=== PATIENT | female | born 1970 | race African-American/Black ===

== ENCOUNTER 2017-08-28 09:21 | Outpatient (CLI) | payer OTHER | END 2017-08-28 09:22 | disposition home or self-care (01) | LOC: BICRAD 09:21 | PROVIDERS: ATTEND Internal Medicine | DX: Z02.71 Encounter for disability determination (principal) ==

== ENCOUNTER 2020-03-17 09:26 | Outpatient (CLI) | payer MEDICARE ==
--- NOTE | 2020-03-17 10:04 | MMO ---
Bilateral MAMMO Bilat Diag [facility]. CLINICAL HISTORY: Patient is 49 years old and is seen for diagnostic exam. The patient has no family history of breast cancer. The patient has no personal history of cancer. VIEWS: The views performed were: bilateral craniocaudal with tomosynthesis; bilateral mediolateral oblique with tomosynthesis; and bilateral mediolateral with tomosynthesis. FILMS COMPARED: The present examination has been compared to a prior imaging study performed at [facility] on 11/04/2015. This study has been interpreted with the assistance of computer-aided detection. MAMMOGRAM FINDINGS: The breasts are heterogeneously dense, which could obscure a lesion on mammography. There are stable benign appearing densities seen in both breasts. There are no suspicious masses, suspicious calcifications, or new areas of architectural distortion. IMPRESSION: THERE IS NO MAMMOGRAPHIC EVIDENCE OF MALIGNANCY. A ROUTINE FOLLOW-UP MAMMOGRAM IN 1 YEAR IS RECOMMENDED. THE RESULTS OF THIS EXAM WERE SENT TO THE PATIENT. ACR BI-RADS Category 2 - Benign finding MAMMOGRAPHY NOTE: 1. A negative mammogram report should not delay a biopsy if a dominant of clinically suspicious mass is present. 2. Approximately 10% to 15% of breast cancers are not detected by mammography. 3. Adenosis and dense breasts may obscure an underlying neoplasm. Reported by: ALAYNA THOMPSON MD Electonically Signed: [id number]
== END 2020-03-17 09:27 | disposition home or self-care (01) ==
LOC: BICMAMMO 09:26
PROVIDERS: ATTEND Family Medicine
DX: N63.20 Unspecified lump in the left breast, unspecified quadrant (principal); R92.8 Other abnormal and inconclusive findings on diagnostic imaging of breast
CPT/HCPCS: 77066; G0279

== ENCOUNTER 2020-11-11 15:15 | Observation (INO) | payer MEDICARE, MEDICAID ==
[~2020-11-11 15:15] MED LIST: Iopamidol-370 76% 500 ML 1 ML ONE
[2020-11-11 19:08] LABS: Hemoglobin 11.5 g/dL (12.0-16.0); Mean Corpuscular HGB CONC 33.9 g/dL (32.0-36.0); Mean Corpuscular Hemoglobin 30.7 pg (27.0-31.0); Mean Corpuscular Volume 90.6 fL (78.0-98.0); Mean Platelet Volume 10.7 fL (7.4-10.4); Platelet Count 135 thou/uL (130-400); RBC Distribution Width 12.4 % (11.5-14.5); Red Blood Cell (RBC) Count 3.74 mill/uL (4.20-5.40); White Blood Cell (WBC) Count 3.8 thou/uL (4.8-10.8)
[2020-11-11 19:27] LABS: ALT (SGPT) 16 U/L (8-55); AST (SGOT) 24 U/L (5-34); Albumin 4.3 g/dL (3.5-5.0); Alkaline Phosphatase 129 U/L (40-110); Anion Gap 13 mmol/L (10-20); BUN (Urea Nitrogen) 13 mg/dL (9.8-20.1); Bilirubin, Total 0.3 mg/dL (0.2-1.2); Calc. Creatinine Clearance 0 mL/min (70-130); Calcium 10.2 mg/dL (7.8-10.44); Carbon Dioxide 24 mmol/L (22-29); Chloride 109 mmol/L (98-107); Globulin 4.9 g/dL (2.4-3.5); Glucose 82 mg/dL (70-105); Potassium 4.5 mmol/L (3.5-5.1); Protein, Total 9.2 g/dL (6.0-8.3); Sodium 141 mmol/L (136-145)
[2020-11-11 19:31] LABS: Eosinophils 1 % (0-10); Lymphocytes 54 % (21-51); MDiff Complete? YES; Monocytes 10 % (0-10); Neutrophil 35 % (42-75); Platelet Morphology Comment Appears Adequate; RBC Morphology Normal
[2020-11-11 19:37] LABS: Bilirubin Negative (Negative); Blood, Urine Negative (Negative); Clarity Clear (Clear); Glucose, Urine (Dipstick) Normal (Negative); Ketone, Urine Negative (Negative); Leukocyte Negative Leu/uL (Negative); Nitrite Negative (Negative); Protein, Urine (Dipstick) Negative (Neg-Trace); Specific Gravity, Urine 1.027 (1.002-1.036); Urobilinogen Normal mg/dL (Less than 2); pH, Urine 5.5 (5.0-9.0)
[2020-11-11] MEDS ORDERED: Enoxaparin Sodium 40 MG/0.4 ML SYRINGE SC SCH (22:00)
[2020-11-11 23:00] LABS: Cardiac Risk 3.7 (Less than 4.5)
[2020-11-11 23:01] VITALS: BMI 20.9
[2020-11-11 23:15] LABS: Hemoglobin A1c 5.3 % (4.0-6.0)
[2020-11-11 23:58] LABS: Syphilis Antibody Index 16.51 S/CO (<1.00 Non-Reactive)
[2020-11-12 00:12] LABS: Amphetamine Not Detected (NotDetected); Barbiturates Screen Not Detected (NotDetected); Benzodiazepine Screen Not Detected (NotDetected); Cocaine Metabolite Screen Not Detected (NotDetected); Methadone Not Detected (NotDetected); Methamphetamine Not Detected (NotDetected); Opiate Screen Not Detected (NotDetected); Oxycodone Screen Not Detected (NotDetected); Phencyclidine (PCP) Not Detected (NotDetected); THC/Cannabinoid Screen Detected (NotDetected); Tricyclic Screen Not Detected (NotDetected)
[2020-11-12 00:35] LABS: HBSAg Index 0.16 S/CO (0-0.99); HIV (1/2) Antibody/Antigen Non-Reactive (NonReactive); HIV 1/2 INDEX 0.13 S/CO (<1.00); Hep A IgM AB Non-Reactive (NonReactive); Hep A IgM S/CO 0.13 S/CO (0-0.79); Hep B Core Total Ab Non-Reactive (NonReactive); Hep B Core Total Index 0.09 S/CO (0-0.79); Hep B Surf Ag Non-Reactive S/CO (NonReactive); Hep C IgG Ab Non-Reactive (NonReactive)
[2020-11-12 00:53] LABS: HBSAB Concentration 211.67 mIU/mL; Hep B Surf AB Reactive (NonReactive)
[2020-11-12 00:57] LABS: Syphilis Antibody INDETERMINATE (Nonreactive)
[2020-11-12] MEDS ORDERED: Acetaminophen 325 MG TAB PO PRN (04:10)
[2020-11-12 05:12] LABS: ALT (SGPT) 22 U/L (8-55); AST (SGOT) 35 U/L (5-34); Albumin 4.1 g/dL (3.5-5.0); Alkaline Phosphatase 122 U/L (40-110); Anion Gap 8 mmol/L (10-20); BUN (Urea Nitrogen) 12 mg/dL (9.8-20.1); Bilirubin, Total 0.3 mg/dL (0.2-1.2); Calc. Creatinine Clearance 75 mL/min (70-130); Calcium 9.9 mg/dL (7.8-10.44); Carbon Dioxide 25 mmol/L (22-29); Chloride 109 mmol/L (98-107); Globulin 4.7 g/dL (2.4-3.5); Glucose 88 mg/dL (70-105); Protein, Total 8.8 g/dL (6.0-8.3); Sodium 138 mmol/L (136-145)
[2020-11-12 05:23] LABS: Band 1 % (5-11); Hemoglobin 11.3 g/dL (12.0-16.0); Hypochromia SLIGHT = 6-15 cells (100X) (0-5/hpf); Lymphocytes 62 % (21-51); MDiff Complete? YES; Mean Corpuscular HGB CONC 34.6 g/dL (32.0-36.0); Mean Corpuscular Hemoglobin 31.1 pg (27.0-31.0); Mean Corpuscular Volume 89.8 fL (78.0-98.0); Mean Platelet Volume 10.7 fL (7.4-10.4); Monocytes 8 % (0-10); Neutrophil 29 % (42-75); Platelet Count 139 thou/uL (130-400); Platelet Morphology Comment Appears Adequate; RBC Distribution Width 12.3 % (11.5-14.5); Red Blood Cell (RBC) Count 3.63 mill/uL (4.20-5.40); White Blood Cell (WBC) Count 3.6 thou/uL (4.8-10.8)
[2020-11-12] MEDS ORDERED: Estradiol 0.01% Vaginal Cream 42.5 gm Tube VAG SCH (09:00)
[2020-11-12] MEDS ORDERED: PARoxetine 20 MG TAB PO SCH (09:00)
[2020-11-12] MEDS ORDERED: Hydrochlorothiazide 25 MG TAB PO SCH (09:00)
[2020-11-12] MEDS ORDERED: Amlodipine 10 MG TAB PO SCH (09:00)
[2020-11-12] MEDS ORDERED: Lorazepam 2 MG/ML VIAL SLOW IVP SCH (14:30)
[2020-11-12 15:49] LABS: SARS-CoV-2 PCR NAA for Saliva Not Detected (NotDetected)
[2020-11-12 15:50] VITALS: BP 128/79; TEMP 98.1
[2020-11-12] MEDS ORDERED: Enoxaparin Sodium 40 MG/0.4 ML SYRINGE SC SCH (21:00)
[2020-11-17 14:39] LABS: Lead-Whole Blood 1 ug/dL (0-4)
== END 2020-11-12 18:02 | disposition home or self-care (01) ==
LOC: ERS 15:15 → 3SE 20:36
PROVIDERS: ADMIT Family Medicine; ATTEND Family Medicine
DX: H53.8 Other visual disturbances (principal); R53.1 Weakness; R20.0 Anesthesia of skin; R15.9 Full incontinence of feces; R32 Unspecified urinary incontinence; D64.9 Anemia, unspecified; I10 Essential (primary) hypertension; M06.9 Rheumatoid arthritis, unspecified; M35.00 Sjogren syndrome, unspecified; D72.829 Elevated white blood cell count, unspecified; F14.11 Cocaine abuse, in remission; K21.9 Gastro-esophageal reflux disease without esophagitis; M48.061 Spinal stenosis, lumbar region without neurogenic claudication; E46 Unspecified protein-calorie malnutrition; Z68.20 Body mass index [BMI] 20.0-20.9, adult; Z87.891 Personal history of nicotine dependence; Z86.19 Personal history of other infectious and parasitic diseases; Z91.410 Personal history of adult physical and sexual abuse; Z82.0 Family history of epilepsy and other diseases of the nervous system; Z79.899 Other long term (current) drug therapy; Z20.822 Contact with and (suspected) exposure to COVID-19
CPT/HCPCS: 70450; 70553; 72141; 72157; 72158; 74177; 80053; 80061; 80306; 81003; 82607; 82746; 83036; 83655; 84134; 85025; 86593; 86704; 86706; 86709; 86780; 86803; 87340; 87389; 99285; U0003; U0005; 36415; 84443; G0378; Q9967

== ENCOUNTER 2021-08-02 15:46 | Outpatient (CLI) | payer MEDICARE, MEDICAID | END 2021-08-02 15:47 | disposition home or self-care (01) | LOC: BICCT 15:46 | PROVIDERS: ATTEND Family Medicine | DX: Z12.2 Encounter for screening for malignant neoplasm of respiratory organs (principal); F17.210 Nicotine dependence, cigarettes, uncomplicated | CPT/HCPCS: 71271 ==

== ENCOUNTER 2021-08-18 14:50 | Outpatient (CLI) | payer MEDICARE, MEDICAID | END 2021-08-18 14:51 | disposition home or self-care (01) | LOC: BICMAMMO 14:50 | PROVIDERS: ATTEND Family Medicine | DX: Z12.31 Encounter for screening mammogram for malignant neoplasm of breast (principal) | CPT/HCPCS: 77063; 77067 ==

== ENCOUNTER 2024-11-05 13:20 | Emergency (ER) | payer OTHER, MEDICAID | END 2024-11-05 14:30 | disposition home or self-care (01) | LOC: ERS 13:20 | DX: K11.20 Sialoadenitis, unspecified (principal); I10 Essential (primary) hypertension; Z79.899 Other long term (current) drug therapy | CPT/HCPCS: 99284 ==